=== PATIENT | female | born 1935 | race Caucasian/White ===

== ENCOUNTER → 2017-07-23 | Outpatient (CLI) | payer MEDICARE ==
[~2017-07-23] MED LIST: ASPIRIN EC325 MG PO; CALTRATE 600+D1 TAB PO; FISH OIL O1600 MG/5 PO; LEVOTHYROXIN0.125 MG PO; MECLIZINE12.5 MG PO; MECLIZINE25 MG PO; MOBIC15 MG PO; MOBIC7.5 MG PO; PLAVIX75 MG PO; PRILOSEC40 MG PO; SIMVASTATIN10 MG PO
--- NOTE | 2017-07-23 15:39 | RADIOLOGY REPORT PS360 ---
KNEE-3 VIEWS-LT HISTORY: LT KNEE PAIN, DJD KNEE ORDERING PHYSICIAN: Jeorme Hong MD PATIENT AGE: 82 years COMPARISON: None FINDINGS: No fracture or dislocation. No lytic or blastic change. Normal mineralization. Moderate osteoarthritic changes involving medial compartment with mild osteoarthritic change of the lateral compartment. Mildly prominent osteophytes are present medially. There may be a small knee joint effusion in the suprapatellar region. 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
== END ==
LOC: RAD 15:10
DX: M25.562 Pain in left knee (principal); M17.9 Osteoarthritis of knee, unspecified